=== PATIENT | male | born 1980 | race Caucasian/White ===

== ENCOUNTER 2017-03-19 05:01 | Emergency (ER) | payer SELFPAY ==
[~2017-03-19] VITALS: Ht 175.3 cm; Wt 78.6 kg
[~2017-03-19 05:01] MED LIST: AMOXICILLIN500 M1 PO; ASPIRIN81 M2 PO; ASTHMA INHALER; AZITHROMYCIN250 MG PO; BACTRIM,SEPT1 TABLET PO; CIPRO500 MG PO; CITRATE OF MAG296 ML PO; COLACE100 MG PO; ENDOCET 5-3251 EACH PO; FLEXERIL5 MG PO; KEFLEX500 MG PO; LEVAQUIN500 MG PO; LO-DOSE ASPIRIN81 M2 PO; MILK OF MAGN PO; MOTRIN600 MG PO; MOTRIN800 MG PO; NOHOMEMEDS; NORCO 5/3251 TABLET PO; PAXIL10 MG PO; PERIDEX1 ML MM; PREDNISONE20 MG PO; PYRIDIUM200 MG PO; SERTRALINE HCL50 MG PO; SUMATRIPTAN SUC50 MG PO; TYLENOL WITH C1 EACH PO; ULTRAM50 MG PO; ZANTAC150 MG PO; ZITHROMAX250 MG PO; ZOLOFT100 MG PO
[2017-03-19 05:47] LABS: HEMATOCRIT 46.7 % (38.0-50.0); MCHC 33.4 G/DL (30.0-36.0); MCV 89.8 FL (86-99); MEAN PLAT.VOLUME 8.9 uM^3 (9.0-12.4); PLATELET COUNT 237 K/uL (156-360); RBC DIS.WIDTH-CV 12.9 % (11.8-14.6); RBC DIS.WIDTH-SD 42.5 % (39-53); WHITE BLOOD COUNT 8.3 K/uL (4.1-10.2)
[2017-03-19 06:06] LABS: CHLORIDE 109 mEq/L (99-109); POTASSIUM 3.6 mEq/L (3.7-5.4); SODIUM 141 mEq/L (136-147)
[2017-03-19 06:08] LABS: GLUCOSE 119 mg/dL (70-99)
[2017-03-19 06:09] LABS: ANION GAP 10 MEQ/L (2-14)
[2017-03-19 06:10] LABS: TOTAL BILIRUBIN 0.2 mg/dL (0.0-1.0)
[2017-03-19 06:11] LABS: ALKALINE PHOSPHATASE 58 IU/L (3-129)
[2017-03-19 06:12] LABS: GFR ESTIMATE (CALCULATED) > 59 mL/min/
[2017-03-19 06:13] LABS: UREA NITROGEN (BUN) 16 mg/dL (9-23)
[2017-03-19 06:15] LABS: LIPASE 25 U/L (1.0-51.0); TROP-I INTERPRETATION NEGATIVE; TROPONIN-I < 0.01 ng/mL (0.0-0.30)
[2017-03-19 06:37] LABS: ADD MIUA? NO; BILIRUBIN NEGATIVE; BLOOD NEGATIVE; COLOR YELLOW ((YELLOW)); GLUCOSE (STRIP) NEGATIVE; KETONES NEGATIVE; LEUKOCYTES NEGATIVE; NITRITE NEGATIVE; PROTEIN (STRIP) NEGATIVE; SPECIFIC GRAVITY 1.023 (1.000-1.030); UROBILINOGEN 0.2 MG/DL (0.2-1.0)
[2017-03-19 06:59] VITALS: BP 133/94
== END 2017-03-19 07:00 | disposition home or self-care (01) ==
LOC: EME 05:01
PROVIDERS: Nurse Practitioner Family
DX: R10.13 Epigastric pain (principal); M54.89 Other dorsalgia; Z73.3 Stress, not elsewhere classified; Z63.4 Disappearance and death of family member; Z79.82 Long term (current) use of aspirin; F17.200 Nicotine dependence, unspecified, uncomplicated
CPT/HCPCS: 71020; 80053; 81003; 83605; 83690; 84484; 85027; 93005; 99281; 99285

== ENCOUNTER 2017-05-05 13:42 | Emergency (ER) | payer SELFPAY ==
[~2017-05-05] VITALS: Ht 175.3 cm; Wt 78.6 kg
[2017-05-05] MEDS ORDERED: NORCO 5/3251 TABLET PO (15:04)
[2017-05-05] MEDS ORDERED: BACTRIM,SEPT1 TABLET PO (15:04)
[2017-05-05 15:15] VITALS: BP 127/86
== END 2017-05-05 15:16 | disposition home or self-care (01) ==
LOC: EME 13:42
DX: L02.411 Cutaneous abscess of right axilla (principal); Z88.1 Allergy status to other antibiotic agents; F17.200 Nicotine dependence, unspecified, uncomplicated
CPT/HCPCS: 99281; 99284

== ENCOUNTER 2017-07-19 06:15 | Emergency (ER) | payer SELFPAY ==
[~2017-07-19] VITALS: Ht 175.3 cm; Wt 78.9 kg
[2017-07-19] MEDS ORDERED: MOTRIN400 MG PO (07:31)
[2017-07-19] MEDS ORDERED: KEFLEX500 MG PO (07:31)
[2017-07-19 08:21] VITALS: BP 127/79
== END 2017-07-19 08:22 | disposition home or self-care (01) ==
LOC: EME 06:15
PROC: 3E0234Z Introduction of Serum, Toxoid and Vaccine into Muscle, Percutaneous Approach (ICD-10-PCS; principal; 2017-07-19)
DX: S61.412A Laceration without foreign body of left hand, initial encounter (principal); W23.0XXA Caught, crushed, jammed, or pinched between moving objects, initial encounter; Z23 Encounter for immunization
CPT/HCPCS: 73130; 99281; 99284; J1885

== ENCOUNTER 2017-09-10 06:52 | Emergency (ER) | payer SELFPAY ==
[~2017-09-10] VITALS: Ht 175.3 cm; Wt 81.0 kg
[~2017-09-10 06:52] MED LIST changes: +MOTRIN400 MG PO
[2017-09-10] MEDS ORDERED: CLEOCIN300 MG PO (07:22)
[2017-09-10] MEDS ORDERED: ZOFRAN ODT4 MG PO (07:22)
[2017-09-10] MEDS ORDERED: MOTRIN600 MG PO (07:22)
[2017-09-10 07:34] VITALS: BP 121/84
== END 2017-09-10 07:36 | disposition home or self-care (01) ==
LOC: EME 06:52
DX: K08.89 Other specified disorders of teeth and supporting structures (principal); R22.0 Localized swelling, mass and lump, head; Z72.0 Tobacco use; J45.909 Unspecified asthma, uncomplicated; F32.9 Major depressive disorder, single episode, unspecified; Z79.82 Long term (current) use of aspirin; Z88.1 Allergy status to other antibiotic agents; Z88.6 Allergy status to analgesic agent
CPT/HCPCS: 99281; 99284

== ENCOUNTER 2017-11-28 05:27 | Emergency (ER) | payer SELFPAY ==
[~2017-11-28] VITALS: Ht 175.3 cm; Wt 80.8 kg
[~2017-11-28 05:27] MED LIST changes: +CLEOCIN300 MG PO; +ZOFRAN ODT4 MG PO
[2017-11-28 06:23] LABS: HEMATOCRIT 44.6 % (38.0-50.0); HEMOGLOBIN 15.4 G/DL (12.5-16.6); MCH 30.3 PG (29.0-34.0); MCHC 34.5 G/DL (30.0-36.0); MCV 87.8 FL (86-99); PLATELET COUNT 178 K/uL (156-360); RBC DIS.WIDTH-CV 12.6 % (11.8-14.6); RBC DIS.WIDTH-SD 40.7 % (39-53); RED BLOOD COUNT 5.08 M/uL (4.00-5.50); WHITE BLOOD COUNT 5.9 K/uL (4.1-10.2)
[2017-11-28 06:38] LABS: CHLORIDE 105 mEq/L (99-109); POTASSIUM 4.1 mEq/L (3.7-5.4); SODIUM 139 mEq/L (136-147)
[2017-11-28 06:39] LABS: GLUCOSE 117 mg/dL (70-99)
[2017-11-28 06:43] LABS: GFR ESTIMATE (CALCULATED) > 59 mL/min/ (58.99-99999)
[2017-11-28 06:44] LABS: UREA NITROGEN (BUN) 16 mg/dL (9-23)
[2017-11-28 06:45] LABS: TROP-I INTERPRETATION NEGATIVE; TROPONIN-I < 0.01 ng/mL (0.0-0.30)
[2017-11-28 07:03] LABS: D-DIMER ELISA < 150.00 ng/mLDDU (<230)
[2017-11-28 09:20] VITALS: BP 108/65
== END 2017-11-28 09:21 | disposition home or self-care (01) ==
LOC: EME 05:27
DX: R07.9 Chest pain, unspecified (principal); J45.909 Unspecified asthma, uncomplicated; F32.9 Major depressive disorder, single episode, unspecified; Q24.0 Dextrocardia; Z72.0 Tobacco use; Z79.82 Long term (current) use of aspirin; Z88.0 Allergy status to penicillin; Z88.6 Allergy status to analgesic agent; Z88.1 Allergy status to other antibiotic agents
CPT/HCPCS: 71046; 80048; 84484; 85027; 85379; 93005; 99281; 99284

== ENCOUNTER 2017-12-10 07:12 | Emergency (ER) | payer SELFPAY ==
[~2017-12-10] VITALS: Ht 175.3 cm; Wt 79.4 kg
[2017-12-10] MEDS ORDERED: FLEXERIL10 MG PO (08:37)
[2017-12-10 08:48] VITALS: BP 132/88
== END 2017-12-10 08:49 | disposition home or self-care (01) ==
LOC: EME 07:12
DX: M25.511 Pain in right shoulder (principal); X50.3XXA Overexertion from repetitive movements, initial encounter; Z88.0 Allergy status to penicillin; Z88.8 Allergy status to other drugs, medicaments and biological substances
CPT/HCPCS: 99281; 99284

== ENCOUNTER 2017-12-17 09:26 | Emergency (ER) | payer SELFPAY ==
[~2017-12-17] VITALS: Ht 175.3 cm; Wt 77.8 kg
[~2017-12-17 09:26] MED LIST changes: +FLEXERIL10 MG PO
[2017-12-17] MEDS ORDERED: PREDNISONE50 MG PO (13:40)
[2017-12-17] MEDS ORDERED: ZITHROMAX Z-PA250 MG PO (13:40)
[2017-12-17] MEDS ORDERED: PROVENTIL HFA6.7 GM IH (13:40)
[2017-12-17 14:14] VITALS: BP 119/75
== END 2017-12-17 14:15 | disposition home or self-care (01) ==
LOC: EME 09:26
PROVIDERS: Emergency Medicine
DX: J20.9 Acute bronchitis, unspecified (principal); J45.909 Unspecified asthma, uncomplicated; F32.9 Major depressive disorder, single episode, unspecified; F17.200 Nicotine dependence, unspecified, uncomplicated; Z79.82 Long term (current) use of aspirin; Z88.0 Allergy status to penicillin; Z88.8 Allergy status to other drugs, medicaments and biological substances
CPT/HCPCS: 71046; 87502; 94640; 99281; 99283

== ENCOUNTER 2018-03-21 04:24 | Emergency (ER) | payer SELFPAY ==
[~2018-03-21] VITALS: Ht 175.3 cm; Wt 80.8 kg
[~2018-03-21 04:24] MED LIST changes: +PREDNISONE50 MG PO; +PROVENTIL HFA6.7 GM IH; +ZITHROMAX Z-PA250 MG PO
[2018-03-21 05:23] LABS: HEMATOCRIT 44.4 % (38.0-50.0); HEMOGLOBIN 15.2 G/DL (12.5-16.6); MCH 30.5 PG (29.0-34.0); MCHC 34.2 G/DL (30.0-36.0); PLATELET COUNT 204 K/uL (156-360); RBC DIS.WIDTH-CV 12.8 % (11.8-14.6); RBC DIS.WIDTH-SD 41.4 % (39-53); RED BLOOD COUNT 4.99 M/uL (4.00-5.50); WHITE BLOOD COUNT 8.4 K/uL (4.1-10.2)
[2018-03-21 05:40] LABS: CHLORIDE 105 mEq/L (99-109); POTASSIUM 3.9 mEq/L (3.7-5.4); SODIUM 140 mEq/L (136-147)
[2018-03-21 05:41] LABS: GLUCOSE 93 mg/dL (70-99)
[2018-03-21 05:45] LABS: CREATININE 0.9 mg/dL (0.6-1.3); GFR ESTIMATE (CALCULATED) > 59 mL/min/ (58.99-99999)
[2018-03-21 05:46] LABS: UREA NITROGEN (BUN) 15 mg/dL (9-23)
[2018-03-21 05:54] LABS: TROP-I INTERPRETATION NEGATIVE; TROPONIN-I < 0.01 ng/mL (0.0-0.30)
[2018-03-21 06:33] VITALS: BP 106/71
== END 2018-03-21 06:34 | disposition home or self-care (01) ==
LOC: EME 04:24
PROVIDERS: Emergency Medicine
DX: R00.2 Palpitations (principal); R06.02 Shortness of breath; R07.9 Chest pain, unspecified; I45.10 Unspecified right bundle-branch block; Q24.0 Dextrocardia; Z79.82 Long term (current) use of aspirin; F17.200 Nicotine dependence, unspecified, uncomplicated
CPT/HCPCS: 71045; 80048; 84484; 85027; 93005; 99281; 99285

== ENCOUNTER 2018-04-21 22:04 | Emergency (ER) | payer SELFPAY ==
[~2018-04-21] VITALS: Ht 175.3 cm; Wt 79.9 kg
[2018-04-21 22:47] LABS: HEMOGLOBIN 14.9 G/DL (12.5-16.6); MCH 30.7 PG (29.0-34.0); MCHC 34.7 G/DL (30.0-36.0); MCV 88.5 FL (86-99); PLATELET COUNT 177 K/uL (156-360); RBC DIS.WIDTH-CV 12.9 % (11.8-14.6); RBC DIS.WIDTH-SD 41.9 % (39-53); RED BLOOD COUNT 4.86 M/uL (4.00-5.50); WHITE BLOOD COUNT 10.2 K/uL (4.1-10.2)
[2018-04-21 22:57] LABS: CHLORIDE 110 mEq/L (99-109); POTASSIUM 3.8 mEq/L (3.7-5.4); SODIUM 142 mEq/L (136-147)
[2018-04-21 22:59] LABS: GLUCOSE 92 mg/dL (70-99)
[2018-04-21 23:03] LABS: CREATININE 0.8 mg/dL (0.6-1.3); GFR ESTIMATE (CALCULATED) > 59 mL/min/ (58.99-99999)
[2018-04-21 23:04] LABS: UREA NITROGEN (BUN) 17 mg/dL (9-23)
[2018-04-21 23:11] LABS: TROP-I INTERPRETATION NEGATIVE; TROPONIN-I < 0.01 ng/mL (0.0-0.30)
[2018-04-22] MEDS ORDERED: VENTOLIN HFA18 GM IH (01:00)
[2018-04-22] MEDS ORDERED: PREDNISONE20 MG PO (01:00)
[2018-04-22 01:28] LABS: TROP-I INTERPRETATION NEGATIVE; TROPONIN-I < 0.01 ng/mL (0.0-0.30)
[2018-04-22 01:45] VITALS: BP 107/66
== END 2018-04-22 01:53 | disposition home or self-care (01) ==
LOC: EME 22:04
PROVIDERS: Emergency Medicine
DX: J45.901 Unspecified asthma with (acute) exacerbation (principal); F32.9 Major depressive disorder, single episode, unspecified; F17.200 Nicotine dependence, unspecified, uncomplicated; Z79.82 Long term (current) use of aspirin; Z88.0 Allergy status to penicillin; Z88.8 Allergy status to other drugs, medicaments and biological substances
CPT/HCPCS: 71046; 80048; 84484; 85027; 93005; 94640; 99281; 99285; J7512